=== PATIENT | male | born 1940 | race Caucasian/White ===

== ENCOUNTER 2016-09-28 10:29 | Day surgery (SDC) | payer MEDICARE ==
[~2016-09-28] VITALS: Ht 190.5 cm; Wt 115.9 kg
[2016-09-28] MEDS ORDERED: SODIUM CHLORIDE 0.9% 1,000 ML IV SCH ×2 (11:07→13:23)
[2016-09-28 11:10] VITALS: BP 131/68
[2016-09-28] MEDS ORDERED: PLEASE ENTER HEIGHT AND WEIGHT MC SCH (11:30)
[2016-09-28] MEDS ORDERED: METO25TA35 PO (11:46)
[2016-09-28] MEDS ORDERED: OMEP-110 PO (11:46)
[2016-09-28] MEDS ORDERED: INSU100V8 SQ (11:46)
[2016-09-28] MEDS ORDERED: ASPI-496 PO (11:46)
[2016-09-28] MEDS ORDERED: PIOG15TA9 PO (11:46)
[2016-09-28] MEDS ORDERED: SITA25TA PO (11:46)
[2016-09-28] MEDS ORDERED: METF10002 PO (11:46)
[2016-09-28] MEDS ORDERED: SIMV40TA3 PO (11:46)
[2016-09-28] MEDS ORDERED: MIDAZOLAM 1 MG/ML, 5ML ONE (11:53)
[2016-09-28] MEDS ORDERED: LIDOCAINE 2%, 20ML ONE (11:54)
[2016-09-28] MEDS ORDERED: BIVALIRUDIN 250 MG ONE (11:54)
[2016-09-28] MEDS ORDERED: FENTANYL PF 100 MCG/2ML ONE (11:54)
[2016-09-28] MEDS ORDERED: HEPARIN 1,000 UNITS/ML, 10ML ONE (11:54)
[2016-09-28] MEDS ORDERED: NITROGLYCERIN 5 MG/ML, 10ML ONE (11:54)
[2016-09-28] MEDS ORDERED: VERAPAMIL 2.5 MG/ML, 2ML ONE (11:54)
== END 2016-09-28 16:48 | disposition home or self-care (01) ==
LOC: CACL 10:29
PROVIDERS: ATTEND Internal Medicine Cardiovascular Disease
DX: I25.10 Atherosclerotic heart disease of native coronary artery without angina pectoris (principal); I42.9 Cardiomyopathy, unspecified; Z87.891 Personal history of nicotine dependence; Z72.89 Other problems related to lifestyle
CPT/HCPCS: 93458; 99156; 99157; C1760; C1769; C1894; J1644; J2250; J3010; J3490; Q9967; J0583

== ENCOUNTER → 2017-02-01 | Outpatient (CLI) | payer MEDICARE ==
[~2017-02-01] MED LIST: ASPI-496 PO; CYAN1TAB29 PO; INSU100V8 SQ; LACT1CAP37 PO; METF10002 PO; METO25TA35 PO; METO25TA91 PO; OMEG-76 PO; OMEP-110 PO; PIOG15TA22 PO; SIMV40TA3 PO; SITA100T PO; SITA25TA PO; iron PO; vitamin d3 PO; vitamin e PO
== END | disposition home or self-care (01) ==
LOC: RAD 09:53
PROVIDERS: ATTEND Nurse Practitioner Family
DX: I42.9 Cardiomyopathy, unspecified (principal); Z79.899 Other long term (current) drug therapy
CPT/HCPCS: 78472; A9560

== ENCOUNTER 2017-02-04 08:00 | Day surgery (SDC) | payer MEDICARE ==
[2017-02-01 12:47] LABS: BLOOD UREA NITROGEN 22 mg/dL (7-18)
[2017-02-01 12:53] LABS: ASPARTATE AMINO TRANSFERASE 17 U/L (15-37)
[2017-02-01 12:54] LABS: HEMATOCRIT 37.7 % (39.2-51.8); HEMOGLOBIN 12.8 g/dL (13.7-18.0); WHITE BLOOD COUNT 26.8 x10^3/uL (3.4-10)
[2017-02-01 13:11] LABS: DIFF TOTAL CELLS COUNTED 100 CELL DIFF
[2017-02-01 13:13] LABS: VERIFY COUNTS? YES
[~2017-02-04] VITALS: Ht 190.5 cm; Wt 118.1 kg
[2017-02-04] MEDS ORDERED: METO25TA35 PO (08:46)
[2017-02-04] MEDS ORDERED: FENTANYL PF 100 MCG/2ML ONE ×4 (09:23→12:10)
[2017-02-04] MEDS ORDERED: LIDOCAINE 2%, 20ML ONE (09:23)
[2017-02-04] MEDS ORDERED: MIDAZOLAM 1 MG/ML, 5ML ONE ×3 (09:23→12:08)
[2017-02-04] MEDS ORDERED: ADENOSINE 6 MG/2 ML ONE (09:28)
[2017-02-04] MEDS ORDERED: ISOPROTERENOL 0.2MG/ML, 5ML ONE (09:28)
[2017-02-04] MEDS ORDERED: SODIUM CHLORIDE 0.9% 1,000 ML IV SCH (10:00)
[2017-02-04] MEDS ORDERED: LIDOCAINE/PF 1%-EPI 1:200K, 30 ML ONE (12:37)
[2017-02-04] MEDS ORDERED: ACETAMINOPHEN 325 MG TABLET PO PRN (13:00)
== END 2017-02-04 17:01 ==
LOC: CACL 08:00
PROVIDERS: ATTEND Internal Medicine Cardiovascular Disease
DX: R55 Syncope and collapse (principal); I48.92 Unspecified atrial flutter; I48.91 Unspecified atrial fibrillation; I47.2 Ventricular tachycardia; I47.1 Supraventricular tachycardia
CPT/HCPCS: 33282; 36415; 71020; 80053; 85025; 93005; 93613; 93621; 93623; 93653; 93655; 99156; 99157; C1730; C1731; C1766; C1894; C2630; J0153; J2250; J3010; J3490

== ENCOUNTER → 2019-10-26 | Outpatient (CLI) | payer MEDICARE ==
[~2019-10-26] MED LIST changes: +SIMV40TA20 PO; -SIMV40TA3 PO
== END | disposition home or self-care (01) ==
LOC: CVU 10:46
PROVIDERS: ATTEND Internal Medicine Cardiovascular Disease
DX: I08.0 Rheumatic disorders of both mitral and aortic valves (principal); I42.9 Cardiomyopathy, unspecified
CPT/HCPCS: 93306

== ENCOUNTER → 2020-09-18 | Outpatient (CLI) | payer MEDICARE ==
[~2020-09-18] MED LIST changes: +FURO20TA3 PO; -LACT1CAP37 PO; +LACT1CAP47 PO; +MAGN64TA7 PO; +METO50TA82 PO; +MONT10TA17 PO; +POTA10TA5 PO; +ROSU10TA2 PO
== END | disposition home or self-care (01) ==
LOC: CVU 06:40
PROVIDERS: ATTEND Internal Medicine Cardiovascular Disease
DX: I08.0 Rheumatic disorders of both mitral and aortic valves (principal); I42.9 Cardiomyopathy, unspecified
CPT/HCPCS: 93306; 93356